=== PATIENT | female | born 1995 | race Caucasian/White ===

== ENCOUNTER → 2020-01-24 | Outpatient (CLI) | payer OTHER ==
--- NOTE | 2020-01-24 12:12 | Diagnostic Imaging Report ---
INDICATION: anatomy survey. TECHNIQUE: Multiple real-time grayscale images were obtained over the gravid uterus. COMPARISON: None FINDINGS: There is a single live intrauterine in the transverse position. The placenta is posterior in location, and there is complete coverage of the internal cervical os indicative of complete previa. The heart rate is 156 beats per minute. The MIGUEL A measures 11.8 cm. anatomy survey was performed and the following structures are visualized and normal: Four-chamber heart, kidneys, urinary bladder, stomach, cerebral ventricles and cerebellum, three-vessel cord, spine and umbilical cord insertion. Due to advanced gestational age, the maternal adnexa are suboptimally evaluated. Biometrical measurements are as follows: Biparietal 4.63 cm, age 20 weeks 0 days. Head circumference 17.59 cm, age 20 weeks 1 days. Abdominal circumference 14.93 cm, age 20 weeks 2 days. Femur length 3.19 cm, age 20 weeks 0 days. Sonographic estimate age: 20 weeks 1 days. Sonographic estimated date of delivery: 06/11/2020. Estimated Weight: 330 gm (+/- 48 gm). LMP percentile: 41%. heart rate: 156 beats per minute. number: 1 of 1. IMPRESSION: 1. Single live intrauterine with normal anatomy survey. 2. Complete previa present. Recommend followup pelvic ultrasound to reassess placental position in the near future. Dictated by: Dictated on workstation # [id number]
== END ==
LOC: RAD 10:00
PROVIDERS: ATTEND Nurse Practitioner Women's Health
DX: Z34.00 Encounter for supervision of normal first pregnancy, unspecified trimester (principal); Z3A.00 Weeks of gestation of pregnancy not specified
CPT/HCPCS: 76805

== ENCOUNTER → 2020-05-26 | Outpatient (CLI) | payer OTHER ==
[2020-05-26 14:41] LABS: ALKALINE PHOSPHATASE 141 U/L (40-136); BILIRUBIN,TOTAL 0.2 MG/DL (0.1-1.0); BUN/CREATININE RATIO 17; CARBON DIOXIDE 20 MMOL/L (21-32); CHLORIDE 106 MMOL/L (98-107); CREATININE SERUM 0.59 MG/DL (0.60-1.30); GFR ESTIMATED > 60; GLUCOSE 82 MG/DL (70-105); SODIUM 138 MMOL/L (135-145)
[2020-05-26 14:42] LABS: ALANINE AMINOTRANSFERASE 21 U/L (0-55); ALBUMIN 3.4 GM/DL (3.2-4.5); TOTAL PROTEIN 6.3 GM/DL (6.4-8.2)
== END ==
LOC: LAB FS 12:54
PROVIDERS: ATTEND Obstetrics & Gynecology
DX: L29.9 Pruritus, unspecified (principal)
CPT/HCPCS: 36415; 80053; 83789

== ENCOUNTER 2020-06-14 19:04 | Inpatient (IN) | payer OTHER ==
[~2020-06-14] VITALS: Ht 170.2 cm; Wt 82.7 kg
[2020-06-14] MEDS ORDERED: D5 LR IV SOLUTION 1,000 ML IV ONE (19:08)
[2020-06-14 19:20] VITALS: BP 139/79
[2020-06-14] MEDS ORDERED: LACTATED RINGERS 1,000 ML IV SCH (19:45)
[2020-06-14] MEDS ORDERED: MINERAL OIL CONCENTRATE 99.9% 15 ML UDC TOP PRN (19:45)
[2020-06-14 20:00] VITALS: BP 119/65
[2020-06-14] MEDS: D5 LR IV SOLUTION 1,000 ML IV SCH (20:09)
[2020-06-14 20:24] VITALS: BP 119/65
[2020-06-14 20:31] LABS: BASOPHILS % (AUTO) 0 % (0-10); EOSINOPHILS # (AUTO) 0.1 10^3/uL (0.0-0.3); EOSINOPHILS % (AUTO) 1 % (0-10); HEMATOCRIT 35 % (35-52); HEMOGLOBIN 11.5 g/dL (11.5-16.0); LYMPHOCYTES % (AUTO) 17 % (12-44); MEAN CORPUSCULAR HEMOGLOBIN 29 pg (25-34); MEAN CORPUSCULAR HGB CONC 33 g/dL (32-36); MEAN CORPUSCULAR VOLUME 89 fL (80-99); MEAN PLATELET VOLUME 11.6 fL (9.0-12.2); MONOCYTES # (AUTO) 0.8 10^3/uL (0.0-1.0); MONOCYTES % (AUTO) 7 % (0-12); NEUTROPHILS # (AUTO) 8.6 10^3/uL (1.8-7.8); NEUTROPHILS % (AUTO) 74 % (42-75); PLATELET COUNT 220 10^3/uL (130-400); WHITE BLOOD COUNT 11.5 10^3/uL (4.3-11.0)
[2020-06-14 23:00] VITALS: BP 100/51
[2020-06-15] VITALS (72 sets, daily range): BP systolic 98–161; BP diastolic 53–102
[2020-06-15] MEDS ORDERED: CALCIUM CARBONATE 500 MG (TUMS) TAB.CHEW PO PRN (02:00)
[2020-06-15] MEDS: CATHETER FLUSH 10 ML SYR IV SCH ×2 (02:00→06:29)
[2020-06-15] MEDS: D5 LR IV SOLUTION 1,000 ML IV SCH ×2 (03:27→11:34)
[2020-06-15] MEDS ORDERED: fentaNYL 2 mcg/ml BUPIVA 0.125 100 ML ONE (07:29)
[2020-06-15] MEDS ORDERED: BUPIVACAINE 0.25% 30 ML (SENSORCAINE) VIAL ONE (08:04)
[2020-06-15] MEDS ORDERED: fentaNYL INJ 100 MCG/2 ML AMP ONE (08:04)
[2020-06-15] MEDS: EPIDURAL (fentaNYL 2 MCG/ML BUPIVA 0.125%)100 ML BAG EPI PRN ×2 (08:30→15:50)
[2020-06-15] MEDS ORDERED: OXYTOCIN PRE-MIX DRIP 500 ML IV SCH ×2 (08:45→19:45)
[2020-06-15] MEDS ORDERED: ONDANSETRON 4 MG/2 ML (SDV) Z0FRAN IV PRN (09:00)
[2020-06-15] MEDS ORDERED: METOCLOPRAMIDE INJ 10 MG/2 ML (REGLAN) IV PRN (09:00)
[2020-06-15] MEDS ORDERED: NALOXONE 0.4 MG/ML 1 ML (NARCAN) VIAL IV PRN ×2 (09:00)
[2020-06-15] MEDS ORDERED: diphenhydrAMINE 50 MG/ML INJ (BENADRYL) IV PRN (09:00)
[2020-06-15] MEDS ORDERED: LACTATED RINGERS 1,000 ML IV SCH (09:00)
[2020-06-15] MEDS ORDERED: LIDOCAINE/EPI 2% 1:200,00 (XYLOCAINE) 10 ML VIAL ONE (15:05)
[2020-06-15] MEDS ORDERED: WITCH HAZEL(TUCKS) 40 EA JAR ONE (19:32)
[2020-06-15] MEDS ORDERED: BENZOCAINE/MENTHOL (DERMOPLAST) 56 ML CAN TP ONE (19:32)
[2020-06-15] MEDS ORDERED: IBUPROFEN 600 MG (MOTRIN) TAB PO ONE (19:33)
[2020-06-15] MEDS ORDERED: DIBUCAINE 1% OINTMENT 30 GM TUBE TOP PRN (19:45)
[2020-06-15] MEDS ORDERED: HYDROcodone/APAP 5 MG/325 MG (LORTAB) TAB PO PRN (19:45)
[2020-06-15] MEDS ORDERED: TETANUS,DIPTH,PERTUSS P/F (BOOSTRIX) 0.5 ML VIAL IM ONE (19:45)
[2020-06-15] MEDS ORDERED: WITCH HAZEL(TUCKS) 40 EA JAR TOP PRN (19:45)
[2020-06-15] MEDS ORDERED: MEASLES,MUMPS,RUBELLA 1 EA INJ SQ ONE (19:45)
[2020-06-15] MEDS ORDERED: BENZOCAINE/MENTHOL (DERMOPLAST) 56 ML CAN TP PRN (19:45)
[2020-06-15] MEDS: IBUPROFEN 600 MG (MOTRIN) TAB PO SCH (19:50)
--- NOTE | 2020-06-15 19:51 | OB Labor & Delivery Record ---
L&D History Date of Service Date of Service: Jun 15, 2020 History Expected Date of Delivery: Jun 11, 2020 Gestational Age in Weeks: 40 Hx : 1 Hx Para: 0 Complications Events: Routine care Operative Indications (Cesarea: N/A-Vaginal Delivery Intrapartal Events: None, Ineffective Pushing L&D Stage1 Stage One Onset of Labor - Date: Jun 15, 2020 Monitors and Tracing Monitor Mode: External Heart Rate: 145 Monitor Accelerations: Uniform Monitor Decelerations: Early Station: 0 Halfway Variability: Average (6-10) Short Term Variability: Present Presentation: Vertex Vital Signs VS - Last 72 Hours, by Label 06/14/20 06/14/20 06/14/20 06/14/20 19:20 20:00 20:24 23:00 Temp 36.9 36.9 Pulse 82 70 70 60 Resp 18 18 18 18 B/P (MAP) 139/79 (99) 119/65 (83) 100/51 (67) Pulse Ox 99 99 O2 Delivery Room Air Room Air 06/15/20 06/15/20 06/15/20 06/15/20 00:00 01:00 02:00 03:00 Temp 36.8 Pulse 67 61 61 55 Resp 18 18 18 18 B/P (MAP) 105/53 (70) 112/67 (82) 110/65 (80) 106/59 (75) 06/15/20 06/15/20 06/15/20 06/15/20 04:00 05:00 06:00 07:00 Temp 36.8 Pulse 58 63 70 68 Resp 18 18 18 18 B/P (MAP) 112/56 (74) 115/63 (80) 103/59 (74) 125/77 (93) 06/15/20 06/15/20 06/15/20 06/15/20 07:39 07:56 08:15 08:18 Temp 36.7 Pulse 67 64 59 Resp 18 18 18 B/P (MAP) 124/74 (91) 120/61 (80) 121/64 (83) Pulse Ox 98 99 O2 Delivery Room Air Room Air Room Air 06/15/20 06/15/20 06/15/20 06/15/20 08:21 08:24 08:27 08:30 Temp 36.4 Pulse 65 69 74 62 Resp 18 18 18 18 B/P (MAP) 134/68 (90) 129/67 (87) 121/60 (80) 111/58 (75) Pulse Ox 99 98 97 O2 Delivery Room Air Room Air Room Air Room Air 06/15/20 06/15/20 06/15/20 06/15/20 08:33 08:35 08:39 08:42 Pulse 68 58 69 73 Resp 18 18 18 18 B/P (MAP) 103/58 (73) 104/60 (75) 104/58 (73) 105/59 (74) Pulse Ox 97 97 O2 Delivery Room Air Room Air Room Air Room Air 06/15/20 06/15/20 06/15/20 06/15/20 08:45 08:47 08:51 08:54 Pulse 65 55 70 57 Resp 18 18 18 18 B/P (MAP) 110/60 (77) 108/57 (74) 106/59 (75) 103/55 (71) Pulse Ox 98 97 97 O2 Delivery Room Air Room Air Room Air Room Air 06/15/20 06/15/20 06/15/20 06/15/20 08:57 09:00 09:03 09:06 Pulse 55 60 60 57 Resp 18 18 18 18 B/P (MAP) 105/55 (72) 104/55 (71) 104/57 (73) 105/59 (74) Pulse Ox 96 97 O2 Delivery Room Air Room Air Room Air Room Air 06/15/20 06/15/20 06/15/20 06/15/20 09:24 09:40 09:56 10:10 Pulse 64 57 54 49 Resp 18 18 18 18 B/P (MAP) 109/66 (80) 100/56 (71) 101/56 (71) 98/57 (71) Pulse Ox 98 98 97 97 O2 Delivery Room Air Room Air Room Air Room Air 06/15/20 06/15/20 06/15/20 06/15/20 10:26 10:34 10:39 10:55 Temp 36.4 Pulse 54 59 56 Resp 18 18 18 B/P (MAP) 103/59 (74) 99/55 (70) 103/60 (74) Pulse Ox 99 99 100 O2 Delivery Room Air Room Air Room Air 06/15/20 06/15/20 06/15/20 06/15/20 11:10 11:26 11:36 11:40 Temp 36.8 Pulse 62 57 60 Resp 18 18 18 B/P (MAP) 113/72 (86) 121/73 (89) 108/54 (72) Pulse Ox 100 100 92 O2 Delivery Room Air Room Air Room Air 06/15/20 06/15/20 06/15/20 06/15/20 12:10 12:27 12:40 12:55 Pulse 61 62 64 64 Resp 18 18 18 18 B/P (MAP) 119/67 (84) 118/71 (87) 109/63 (78) 125/59 (81) Pulse Ox 100 100 100 92 O2 Delivery Room Air Room Air Room Air Room Air 06/15/20 06/15/20 06/15/20 06/15/20 13:11 13:25 13:39 13:56 Pulse 63 63 58 60 Resp 18 18 18 18 B/P (MAP) 113/58 (76) 114/65 (81) 119/72 (88) 118/70 (86) Pulse Ox 98 99 99 98 O2 Delivery Room Air Room Air Room Air Room Air 06/15/20 06/15/20 06/15/20 06/15/20 14:10 14:26 14:42 14:54 Pulse 60 68 58 70 Resp 18 18 18 18 B/P (MAP) 118/68 (85) 110/65 (80) 127/75 (92) 119/71 (87) Pulse Ox 99 97 100 100 O2 Delivery Room Air Room Air Room Air Room Air 06/15/20 06/15/20 06/15/20 06/15/20 15:07 15:26 15:40 15:47 Temp 37.0 36.9 Pulse 83 111 Resp 18 18 B/P (MAP) 130/67 (88) 132/74 (93) Pulse Ox 100 99 O2 Delivery Room Air Room Air 06/15/20 06/15/20 06/15/20 06/15/20 15:56 16:10 16:25 16:40 Temp 36.9 Pulse 72 69 82 83 Resp 18 18 18 18 B/P (MAP) 120/69 (86) 116/68 (84) 131/68 (89) 137/73 (94) Pulse Ox 100 100 98 100 O2 Delivery Room Air Room Air Room Air Room Air 06/15/20 06/15/20 06/15/20 06/15/20 16:55 17:02 17:10 17:25 Temp 38.2 Pulse 81 92 98 Resp 18 18 18 B/P (MAP) 139/67 (91) 133/70 (91) 143/67 (92) O2 Delivery Room Air Room Air Room Air 06/15/20 06/15/20 06/15/20 06/15/20 17:40 17:56 18:24 18:40 Pulse 87 83 157 141 Resp 18 18 18 18 B/P (MAP) 118/70 (86) 121/73 (89) 161/102 (121) 149/69 (95) O2 Delivery Room Air Room Air Room Air Room Air 06/15/20 18:56 Pulse 142 Resp 18 B/P (MAP) 154/73 (100) O2 Delivery Room Air Rupture of Membranes Spontaneous Ruture of Membrane: Yes Amniotic Membrane Rupture Time: 0630 Amniotic Membrane Fluid Desc.: Clear Vaginal Bleeding Description: Normal Show Induction/Anesthesia Epidural Cath Placement - Time: 822 Progress/Notes Patient admitted last night for IOL. Cytotec PO given for cervical ripening overnight. SROM occurred this am around 630 am. Pitocin augmentation was started due to dysfunction contraction pattern. Epidural was obtained. She progressed with max dose of 8mu pitocin to complete a 0 station. L&D Stage2 Stage Two Stage II Date: Jun 15, 2020 Monitors and Tracing Monitor Mode: External Heart Rate: 170 Monitor Accelerations: Uniform Monitor Decelerations: Variable Halfway Variability: Average (6-10) Short Term Variability: Present Position: Right Occiput Anterior Presentation: Vertex Signs of Distress by FHT Signs of Distress Patient progressed infant vertex to +2 station, however little change made. Due to ineffective pushing and lack of progress in station, as well as persistent tachycardia, and FHR decelerations concerning for distress. Discussed with patient low vacuum extraction and risk involved. Patient agreeable to proceed. With next maternal push vacuum applied, however, no good suction seal achieved. A second kiwi was applied and first was discarded. I was able to place over flexion point, and give gentle downward tension with 60 mmHg suction applied. This partially delivered head to . A pop off occurred again, and RML was performed at that point. One last application of kiwi was done, which allowed for extension of the head and delivery. The kiwi was then taken off. Anterior right shoulder and then posterior should delivered, and infant handed off to maternal abdomen. Cord Descript/Complications Cord Vessel Description: 3 Vessels Delivery Type Infant Delivery Method: Low Vacuum Extraction Anterior Shoulder: Right Episiotomy/Perineal Laceration Laceraction(s)/Extensions: Yes Episiotomy Description: Right Mediolateral Location Modifier: Left Degree (describe repair) Patient had a left labial, and RML. Repaired using 3-0 and 2-0 vicryl suture in usual fashion. Condition of Delivery 1 minute Comment: 6 5 minute Comment: 9 Notes Live female weight 9lbs 7oz Condition of Infant Condition of Infant: Living Exam: No Observed Abnormalities Resuscitation Resuscitation: N/A - Spontaneous Resp L&D Stage3 Stage Three Stage III Date: Jun 15, 2020 Pictocin Pitocin Administration mu/min: 8 Pitocin ml/hr: 8 Pitocin Administration Comment: 30 mu wide open at delivery of placenta Placenta Delivery Placenta Delivery: Spontaneous Delivery Summary Summary Estimated blood loss (mL): 450 Attending at delivery: Cintia Bishop DO Condition of Delivery Examined: Cervix Examined, Uterus Explored Post Hemorrhage: No Condition of Mother stable Condition of (s) stable CINTIA BISHOP DO Jun 15, 2020 19:51
--- NOTE | 2020-06-15 19:54 | History & Physical-OB ---
OB - Chief Complaint & HPI Date/Time Date of Admission: Date of Admission: Jun 14, 2020 at 19:04 Date seen by a Provider: Jun 15, 2020 Time Seen by a Provider: 07:55 Chief Complaint/History OB-Reason for Admission/Chief: Induction of Labor Hx : 1 Hx Para: 0 Expected Date of Delivery: Jun 11, 2020 Gestational Age in Weeks: 40 Gestational Age in Days: 3 Admission Nurse Assessment Rev: Yes Allergies and Home Medications Allergies Coded Allergies: No Known Drug Allergies (Unverified , 06/14/20) Patient Home Medication List Home Medication List Reviewed: Yes OB - History Hx of Present Care: Yes Ultrasounds: Normal mid trimester US Obstetrical Complications: None Medical Complications: None Obstetrical History Hx : 1 Hx Para: 0 Patient Past Medical History n/a OB - Admission Exam Physical Exam Vitals: Vital Signs 06/15/20 06/15/20 06/15/20 16:40 17:02 18:56 Temp 38.2 Pulse 142 Resp 18 B/P (MAP) 154/73 (100) Pulse Ox 100 O2 Delivery Room Air HEENT: NCAT Heart: Rhythm Normal Lungs: Clear Abdomen: Gravid Extremities: Normal Reflexes: Normal Cervical Dilatation: 1cm Effacement: 75% Station: -1 Membranes: Intact Heart Rate: 130's Accelerations: Accelerations Present Decelerations: No Decelerations Short Term Variability: Present Sanitation Truck Driver Variability: Average (6-25) Contractions on Admission: >10 Minutes Apart Intensity: Mild OB - Assessment/Plan/Diagnosis Assessment Assessment: induction of labor Admission Dx 25 yo @ 40.3 weeks Induction of labor Post dates Admission Status: Inpatient Order (span 2 midnights) Reason for Inpatient Admission: 25 yo @ 40.3 weeks Induction of labor Post dates Plan Plan: Induction Induction Method: per Misoprostol Protocol CINTIA BISHOP DO Jun 15, 2020 19:54
[2020-06-15] MEDS ORDERED: CATHETER FLUSH 10 ML SYR IV SCH (22:00)
[2020-06-16 00:08] VITALS: BP 115/53
[2020-06-16] MEDS: IBUPROFEN 600 MG (MOTRIN) TAB PO SCH ×4 (02:13→22:17)
[2020-06-16] MEDS: DOCUSATE SODIUM 100 MG (COLACE) CAP PO SCH ×3 (02:13→20:59)
[2020-06-16 04:00] VITALS: BP 113/58
[2020-06-16 05:44] LABS: BASOPHILS % (AUTO) 0 % (0-10); EOSINOPHILS # (AUTO) 0.1 10^3/uL (0.0-0.3); EOSINOPHILS % (AUTO) 0 % (0-10); HEMATOCRIT 27 % (35-52); HEMOGLOBIN 8.8 g/dL (11.5-16.0); LYMPHOCYTES # (AUTO) 1.7 10^3/uL (1.0-4.0); LYMPHOCYTES % (AUTO) 10 % (12-44); MEAN CORPUSCULAR HEMOGLOBIN 29 pg (25-34); MEAN CORPUSCULAR HGB CONC 32 g/dL (32-36); MEAN CORPUSCULAR VOLUME 91 fL (80-99); MEAN PLATELET VOLUME 11.3 fL (9.0-12.2); MONOCYTES # (AUTO) 1.4 10^3/uL (0.0-1.0); MONOCYTES % (AUTO) 8 % (0-12); NEUTROPHILS # (AUTO) 14.1 10^3/uL (1.8-7.8); NEUTROPHILS % (AUTO) 81 % (42-75); PLATELET COUNT 174 10^3/uL (130-400); WHITE BLOOD COUNT 17.4 10^3/uL (4.3-11.0)
--- NOTE | 2020-06-16 07:13 | Postpartum Progress Note ---
Note Note Day # 1 Subjective: Patient is without complaints. Ambulating, voiding. Tolerating a regular diet without nausea or vomiting. Normal lochia. Pain is well controlled with oral pain medications. Objective: Physical Exam: General - Alert and oriented, no apparent distress Abdomen - Soft, appropriately tender to palpation, non-distended, fundus firm at umbilicus Extremities - no edema, negative Lisbet's bilaterally Assessment: PPD 1 VAVD Acute blood loss anemia Plan: Routine care. Encourage breast feeding. Encourage ambulation. Ferrous sulfate supplementation. Plan for discharge tomorrow Vitals - Labs Vital Signs - I&O Vital Signs Date Time Temp Pulse Resp B/P (MAP) Pulse Ox O2 Delivery O2 Flow Rate FiO2 06/16/20 04:00 36.5 67 18 113/58 (76) 96 06/16/20 00:08 37.0 65 18 115/53 (73) 97 06/15/20 21:24 79 20 119/62 (81) Room Air 06/15/20 21:09 82 20 121/67 (85) Room Air 06/15/20 20:54 37.1 76 20 113/58 (76) Room Air 06/15/20 20:39 74 20 106/59 (75) Room Air 06/15/20 20:24 76 18 111/58 (75) Room Air 06/15/20 20:09 18 118/69 (85) Room Air 06/15/20 19:54 77 18 124/56 (78) Room Air 06/15/20 19:39 84 20 124/58 (80) Room Air 06/15/20 19:24 37.4 96 20 125/59 (81) Room Air 06/15/20 18:56 142 18 154/73 (100) Room Air 06/15/20 18:40 141 18 149/69 (95) Room Air 06/15/20 18:24 157 18 161/102 (121) Room Air 06/15/20 17:56 83 18 121/73 (89) Room Air 06/15/20 17:40 87 18 118/70 (86) Room Air 06/15/20 17:25 98 18 143/67 (92) Room Air 06/15/20 17:10 92 18 133/70 (91) Room Air 06/15/20 17:02 38.2 06/15/20 16:55 81 18 139/67 (91) Room Air 06/15/20 16:40 36.9 83 18 137/73 (94) 100 Room Air 06/15/20 16:25 82 18 131/68 (89) 98 Room Air 06/15/20 16:10 69 18 116/68 (84) 100 Room Air 06/15/20 15:56 72 18 120/69 (86) 100 Room Air 06/15/20 15:47 36.9 06/15/20 15:40 111 18 132/74 (93) 99 Room Air 06/15/20 15:26 83 18 130/67 (88) 100 Room Air 06/15/20 15:07 37.0 06/15/20 14:54 70 18 119/71 (87) 100 Room Air 06/15/20 14:42 58 18 127/75 (92) 100 Room Air 06/15/20 14:26 68 18 110/65 (80) 97 Room Air 06/15/20 14:10 60 18 118/68 (85) 99 Room Air 06/15/20 13:56 60 18 118/70 (86) 98 Room Air 06/15/20 13:39 58 18 119/72 (88) 99 Room Air 06/15/20 13:25 63 18 114/65 (81) 99 Room Air 06/15/20 13:11 63 18 113/58 (76) 98 Room Air 06/15/20 12:55 64 18 125/59 (81) 92 Room Air 06/15/20 12:40 64 18 109/63 (78) 100 Room Air 06/15/20 12:27 62 18 118/71 (87) 100 Room Air 06/15/20 12:10 61 18 119/67 (84) 100 Room Air 06/15/20 11:40 60 18 108/54 (72) 92 Room Air 06/15/20 11:36 36.8 06/15/20 11:26 57 18 121/73 (89) 100 Room Air 06/15/20 11:10 62 18 113/72 (86) 100 Room Air 06/15/20 10:55 56 18 103/60 (74) 100 Room Air 06/15/20 10:39 59 18 99/55 (70) 99 Room Air 06/15/20 10:34 36.4 06/15/20 10:26 54 18 103/59 (74) 99 Room Air 06/15/20 10:10 49 18 98/57 (71) 97 Room Air 06/15/20 09:56 54 18 101/56 (71) 97 Room Air 06/15/20 09:40 57 18 100/56 (71) 98 Room Air 06/15/20 09:24 64 18 109/66 (80) 98 Room Air 06/15/20 09:06 57 18 105/59 (74) 97 Room Air 06/15/20 09:03 60 18 104/57 (73) Room Air 06/15/20 09:00 60 18 104/55 (71) 96 Room Air 06/15/20 08:57 55 18 105/55 (72) Room Air 06/15/20 08:54 57 18 103/55 (71) 97 Room Air 06/15/20 08:51 70 18 106/59 (75) 97 Room Air 06/15/20 08:47 55 18 108/57 (74) Room Air 06/15/20 08:45 65 18 110/60 (77) 98 Room Air 06/15/20 08:42 73 18 105/59 (74) Room Air 06/15/20 08:39 69 18 104/58 (73) 97 Room Air 06/15/20 08:35 58 18 104/60 (75) 97 Room Air 06/15/20 08:33 68 18 103/58 (73) Room Air 06/15/20 08:30 62 18 111/58 (75) 97 Room Air 06/15/20 08:27 36.4 74 18 121/60 (80) Room Air 06/15/20 08:24 69 18 129/67 (87) 98 Room Air 06/15/20 08:21 65 18 134/68 (90) 99 Room Air 06/15/20 08:18 59 18 121/64 (83) 99 Room Air 06/15/20 08:15 64 18 120/61 (80) 98 Room Air 06/15/20 07:56 67 18 124/74 (91) Room Air 06/15/20 07:39 36.7 I & O 06/16/20 07:00 Intake Total 2000 ml Balance 2000 ml Labs Laboratory Tests 06/16/20 05:17: White Blood Count 17.4H, Red Blood Count 3.00L, Hemoglobin 8.8#L, Hematocrit 27L , Mean Corpuscular Volume 91, Mean Corpuscular Hemoglobin 29, Mean Corpuscular Hemoglobin Concent 32, Red Cell Distribution Width 13.6, Platelet Count 174, Mean Platelet Volume 11.3, Immature Granulocyte % (Auto) 1, Neutrophils (%) (Auto) 81H, Lymphocytes (%) (Auto) 10L, Monocytes (%) (Auto) 8, Eosinophils (%) (Auto) 0, Basophils (%) (Auto) 0, Neutrophils # (Auto) 14.1H, Lymphocytes # (Auto) 1.7, Monocytes # (Auto) 1.4H, Eosinophils # (Auto) 0.1, Basophils # (Auto) 0.0, Immature Granulocyte # (Auto) 0.1 CINTIA BISHOP DO Jun 16, 2020 07:13
--- NOTE | 2020-06-16 07:19 | Anesthesia-Regional Post-Op ---
Regional Patient Condition Mental Status: Alert, Oriented x3 Circulation: Same as Pre-Op Headache: Absent Sensation: Full Recovery Motor Block: Absent Post Op Complications Complications None Follow Up Care/Instructions Patient Instructions None needed. Anesthesia/Patient Condition Patient is doing well, no complaints, stable vital signs, no apparent adverse anesthesia problems. No complications reported per nursing. JUAN BUSTOS CRNA Jun 16, 2020 07:19
[2020-06-16 09:00] VITALS: BP 111/64
[2020-06-16] MEDS: PRENATAL VITAMIN 1 EA TAB PO SCH (09:27)
[2020-06-16] MEDS: FERROUS SULF 325 MG (IRON) TAB PO SCH (09:27)
[2020-06-16 12:30] VITALS: BP 102/61
[2020-06-16 16:15] VITALS: BP 116/58
[2020-06-16 21:05] VITALS: BP 110/58
--- NOTE | 2020-06-16 21:07 | Discharge Inst-Women's Service ---
Discharge Inst-Women's Serv Depart Medication/Instructions New, Converted or Re-Newed RX: RX on Chart Final Diagnosis PPD 2 VAVD Problems Reviewed?: Yes Consults/Follow Up Additional Follow Up: Yes Orders/Referrals Dr. Cueto in 6 weeks Activity Activity: Activity as Tolerated Driving Instructions: No Driving for 1 Week NO SMOKING: NO SMOKING Nothing Inside Vagina: No Douching, No [place], No Tampons Diet Discharge Diet: No Restrictions Symptoms to Report to : Bleeding Excessive, Pain Increased, Fever Over 101 Degrees F, Vaginal Bleeding Increase, Questions/Concerns For Any Problems or Questions: Contact Your Physician Skin/Wound Care Stitches/[place]/Dermabond: CINTIA Brasher DO Jun 16, 2020 21:07
[2020-06-16] MEDS ORDERED: DCS100C PO (21:09)
[2020-06-16] MEDS ORDERED: IBUP-844 PO (21:09)
[2020-06-16] MEDS ORDERED: BENZ78AE5 TP (21:09)
[2020-06-16] MEDS ORDERED: DIBU30OI TOP (21:09)
[2020-06-16] MEDS ORDERED: ACHD5005 PO (21:09)
[2020-06-17 00:35] VITALS: BP 116/62
[2020-06-17 04:00] VITALS: BP 120/61
[2020-06-17] MEDS: IBUPROFEN 600 MG (MOTRIN) TAB PO SCH ×2 (04:02→10:12)
[2020-06-17 09:02] VITALS: BP 114/75
[2020-06-17] MEDS: PRENATAL VITAMIN 1 EA TAB PO SCH (09:08)
[2020-06-17] MEDS: FERROUS SULF 325 MG (IRON) TAB PO SCH (09:08)
[2020-06-17] MEDS: DOCUSATE SODIUM 100 MG (COLACE) CAP PO SCH (09:08)
--- NOTE | 2020-06-17 10:30 | Postpartum Progress Note ---
Note Note Day # 2 Subjective: Patient is without complaints. Ambulating, voiding. Tolerating a regular diet without nausea or vomiting. Normal lochia. Pain is well controlled with oral pain medications. Objective: Physical Exam: General - Alert and oriented, no apparent distress Abdomen - Soft, appropriately tender to palpation, non-distended, fundus firm at umbilicus Extremities - no edema, negative Lisbet's bilaterally Assessment: PPD 2 VAVD Acute blood loss anemia Plan: Routine care. Encourage breast feeding. Encourage ambulation. Ferrous sulfate supplementation. Plan for discharge today Vitals - Labs Vital Signs - I&O Vital Signs Date Time Temp Pulse Resp B/P (MAP) Pulse Ox O2 Delivery O2 Flow Rate FiO2 06/17/20 09:02 37.0 69 16 114/75 (88) 100 Room Air 06/17/20 04:00 36.7 67 16 120/61 (80) 98 Room Air 06/17/20 00:35 36.7 68 16 116/62 (80) 98 Room Air 06/16/20 21:05 36.9 73 16 110/58 (75) 98 Room Air 06/16/20 16:15 36.8 67 18 116/58 (77) 98 Room Air 06/16/20 12:30 36.9 74 17 102/61 (75) 97 Room Air CINTIA BISHOP DO Jun 17, 2020 10:30
[2020-06-17 13:20] VITALS: BP 114/75
== END 2020-06-17 13:20 | disposition home or self-care (01) | DRG 806 ==
LOC: LDRP 19:04 → UNDODISIN 06-15 22:00 → LDRP 06-16 07:17
PROVIDERS: ADMIT Obstetrics & Gynecology; ATTEND Obstetrics & Gynecology
PROC: 3E0D7GC Introduction of Other Therapeutic Substance into Mouth and Pharynx, Via Natural or Artificial Opening (ICD-10-PCS; 2020-06-14)
PROC: 10D07Z6 Extraction of Products of Conception, Vacuum, Via Natural or Artificial Opening (ICD-10-PCS; principal; 2020-06-15)
PROC: 0HQ9XZZ Repair Perineum Skin, External Approach (ICD-10-PCS; 2020-06-15)
PROC: 0W8NXZZ Division of Female Perineum, External Approach (ICD-10-PCS; 2020-06-15)
DX: O48.0 Post-term pregnancy (principal); D62 Acute posthemorrhagic anemia; Z37.0 Single live birth; O76 Abnormality in fetal heart rate and rhythm complicating labor and delivery; O70.0 First degree perineal laceration during delivery; O90.81 Anemia of the puerperium; Z3A.40 40 weeks gestation of pregnancy
CPT/HCPCS: 36415; 85025; 86850; 86900; 86901

== ENCOUNTER → 2021-08-28 | Outpatient (CLI) | payer OTHER ==
[~2021-08-28] MED LIST: ACHD5005 PO; BENZ78AE5 TP; DIBU30OI TOP; DOCU-239 PO; IBUP-844 PO
[2021-08-28 19:03] LABS: ALBUMIN 4.3 GM/DL (3.2-4.5)
[2021-08-28 19:06] LABS: TOTAL PROTEIN 6.9 GM/DL (6.4-8.2)
[2021-08-28 19:07] LABS: BILIRUBIN,TOTAL 0.3 MG/DL (0.1-1.0)
[2021-08-28 19:11] LABS: BILIRUBIN,DIRECT 0.1 MG/DL (0.0-0.3); BILIRUBIN,INDIRECT 0.2 MG/DL
== END ==
LOC: LAB 18:34
PROVIDERS: ATTEND Registered Nurse Emergency
DX: Z76.89 Persons encountering health services in other specified circumstances (principal)
CPT/HCPCS: 36415; 80076

== ENCOUNTER → 2021-10-21 | Outpatient (CLI) | payer OTHER ==
[2021-10-21 20:32] LABS: ALBUMIN 4.1 GM/DL (3.2-4.5); BILIRUBIN,DIRECT 0.1 MG/DL (0.0-0.3); BILIRUBIN,INDIRECT 0.2 MG/DL; BILIRUBIN,TOTAL 0.3 MG/DL (0.1-1.0); TOTAL PROTEIN 6.5 GM/DL (6.4-8.2)
== END ==
LOC: LAB 19:24
PROVIDERS: ATTEND Podiatrist Foot & Ankle Surgery
DX: B35.1 Tinea unguium (principal)
CPT/HCPCS: 36415; 80076

== ENCOUNTER → 2021-11-29 | Outpatient (CLI) | payer OTHER ==
[2021-11-29 11:10] LABS: ALBUMIN 4.1 GM/DL (3.2-4.5)
[2021-11-29 11:13] LABS: TOTAL PROTEIN 6.9 GM/DL (6.4-8.2)
[2021-11-29 11:14] LABS: BILIRUBIN,TOTAL 0.4 MG/DL (0.1-1.0)
[2021-11-29 11:18] LABS: BILIRUBIN,DIRECT 0.2 MG/DL (0.0-0.3); BILIRUBIN,INDIRECT 0.2 MG/DL
== END ==
LOC: LAB 10:25
PROVIDERS: ATTEND Podiatrist Foot & Ankle Surgery
DX: B49 Unspecified mycosis (principal)
CPT/HCPCS: 36415; 80076

== ENCOUNTER 2022-08-26 05:36 | Outpatient (CLI) | payer OTHER ==
[~2022-08-26] VITALS: Ht 170.2 cm; Wt 83.5 kg
[2022-08-26] MEDS ORDERED: PREN-98 PO (10:46)
[2022-08-26] MEDS ORDERED: FOLIC PO (10:46)
[2022-08-26] MEDS ORDERED: FERR325T24 PO (10:46)
[2022-08-26] MEDS ORDERED: FOLI1TAB33 PO (10:46)
[2022-08-26] MEDS ORDERED: CALC500T7 PO (10:54)
== END 2022-08-26 10:55 | disposition home or self-care (01) ==
LOC: PREOP 05:36
PROVIDERS: ATTEND Obstetrics & Gynecology
DX: Z01.818 Encounter for other preprocedural examination (principal)

== ENCOUNTER 2022-08-29 05:36 | Inpatient (IN) | payer OTHER ==
[2022-08-29] VITALS (9 sets, daily range): BP systolic 108–129; BP diastolic 53–72
[~2022-08-29] VITALS: Ht 170 cm; Wt 84.1 kg
[~2022-08-29 05:36] MED LIST changes: +CALC500T7 PO; +FERR325T24 PO; +FOLI1TAB33 PO; +FOLIC PO; +PREN-98 PO
[2022-08-29] MEDS ORDERED: CATHETER FLUSH 10 ML SYR IV PRN (05:45)
[2022-08-29] MEDS ORDERED: CITRIC ACID/SOB CIT (BICITRA) 30 ML UDC PO ONE (05:45)
[2022-08-29] MEDS ORDERED: FAMOTIDINE 20MG/2ML IV (PEPCID) IV ONE (05:45)
[2022-08-29] MEDS ORDERED: LACTATED RINGERS 1,000 ML IV PRN ×2 (05:45)
[2022-08-29] MEDS ORDERED: ceFAZolin INJECTION 2,000 MG in NS (IVPB) 50 ML IV ONE (05:45)
[2022-08-29] MEDS ORDERED: METOCLOPRAMIDE INJ 10 MG/2 ML (REGLAN) IV ONE (05:45)
[2022-08-29 06:28] LABS: BASOPHILS # (AUTO) 0.1 10^3/uL (0.0-0.1); BASOPHILS % (AUTO) 1 % (0-10); EOSINOPHILS # (AUTO) 0.2 10^3/uL (0.0-0.3); EOSINOPHILS % (AUTO) 2 % (0-10); HEMATOCRIT 41 % (35-52); HEMOGLOBIN 14.2 g/dL (11.5-16.0); LYMPHOCYTES # (AUTO) 2.4 10^3/uL (1.0-4.0); LYMPHOCYTES % (AUTO) 20 % (12-44); MEAN CORPUSCULAR HEMOGLOBIN 35 pg (25-34); MEAN CORPUSCULAR HGB CONC 35 g/dL (32-36); MEAN CORPUSCULAR VOLUME 99 fL (80-99); MEAN PLATELET VOLUME 11.2 fL (9.0-12.2); MONOCYTES # (AUTO) 1.1 10^3/uL (0.0-1.0); MONOCYTES % (AUTO) 10 % (0-12); NEUTROPHILS # (AUTO) 7.9 10^3/uL (1.8-7.8); NEUTROPHILS % (AUTO) 66 % (42-75); PLATELET COUNT 144 10^3/uL (130-400); WHITE BLOOD COUNT 11.9 10^3/uL (4.3-11.0)
[2022-08-29] MEDS ORDERED: OXYTOCIN PRE-MIX DRIP 1,000 ML IV ONE (06:49)
[2022-08-29] MEDS ORDERED: fentaNYL INJ 100 MCG/2 ML AMP ONE (06:49)
[2022-08-29] MEDS ORDERED: ROPIVACAINE 5MG/ML 30ML VIAL ONE (06:56)
[2022-08-29] MEDS ORDERED: METHYLERGONOVINE 0.2 MG/ML (METHERGINE) AMP ONE (07:07)
--- NOTE | 2022-08-29 07:24 | History & Physical-OB ---
OB - Chief Complaint & HPI Date/Time Date of Admission: Date of Admission: Aug 29, 2022 at 05:36 Date seen by a Provider: Aug 29, 2022 Time Seen by a Provider: 07:10 Chief Complaint/History OB-Reason for Admission/Chief: Section Hx : 2 Hx Para: 1 Expected Date of Delivery: Sep 19, 2022 Gestational Age in Weeks: 37 Gestational Age in Days: 0 Indication for : malpresentation Other reason for admission: Patient noted to have breech/transverse presentation, but breech breech presentation yesterday with an unstable ly as well as advanced cervical dilatation there plan for at term with twin delivery was planned. Admission Nurse Assessment Rev: Yes Allergies and Home Medications Allergies Coded Allergies: No Known Drug Allergies (Unverified , 06/14/20) Patient Home Medication List Home Medication List Reviewed: Yes Calcium Carbonate (Tums) Unknown Strength Tab.chew, Unknown Dose PO, (Reported) Entered as Reported by: GILBERT AL on 08/26/22 105 Ferrous Sulfate (Ferosul) 325 Mg (65 Mg Iron) Tablet, 325 MG PO DAILY, (Reported) Entered as Reported by: GILBERT AL on 08/26/22 104 Vit37/Iron/Folic Acid ([place] Chewable Tablet) 29 Mg Iron-1 Mg Tab.chew, 1 EACH PO DAILY, (Reported) Entered as Reported by: GILBERT AL on 08/26/22 104 [Folic ] , 88 MCG PO DAILY, (Reported) Entered as Reported by: GILBERT AL on 08/26/22 104 Discontinued Medications Benzocaine/Menthol (Dermoplast Pain Relieving [place]) 78 Gm Aerosol, 0 ML TP UD PRN for PAIN- SEE INSTRUCTIONS Discontinued Reason: No Longer Taking Prescribed by: CINTIA BISHOP on 06/16/202108 Dibucaine (Dibucaine) 30 Gm Oint, 0 GM TOP UD PRN for PAIN- SEE INSTRUCTIONS Discontinued Reason: No Longer Taking Prescribed by: CINTIA BISHOP on 06/16/202108 Docusate Sodium (Dok) 100 Mg Capsule, 100 MG PO BID PRN for CONSTIPATION-1ST LINE Discontinued Reason: No Longer Taking Prescribed by: CINTIA BISHOP on 06/16/202108 Folic Acid (Folic Acid) 1 Mg Tablet, 1 MG PO DAILY, (Reported) Discontinued Reason: No Longer Taking Entered as Reported by: GILBERT Agustín SERVANDO on 08/26/22 1046 Hydrocodone Bit/Acetaminophen (HYDROcodone/APAP 5 MG/325 MG TAB) 1 Tab Tab, 1 EA PO Q4H PRN for PAIN-MODERATE (5-7) Discontinued Reason: No Longer Taking Prescribed by: CINTIA BISHOP on 06/16/202108 Ibuprofen (Ibu) 600 Mg Tablet, 600 MG PO Q6H Discontinued Reason: No Longer Taking Prescribed by: CINTIA BISHOP on 06/16/202108 OB - History Hx of Present Care: Yes Ultrasounds: Normal mid trimester US (Di/Di Twins) Obstetrical Complications: None Medical Complications: None Patient Past Medical History n/a Social History/Family History 2nd Hand Smoke Exposure: No Immunizations Influenza Vaccine Up-to-Date: No; Not Current First/Initial COVID19 Vaccine: 2020 Second COVID19 Vaccination: 2020 COVID19 Vaccine Air Marshal: [place] OB - Admission Exam Physical Exam Vitals: Vital Signs 08/29/22 06:19 Temp 37.1 Pulse 67 Resp 18 Pulse Ox 98 O2 Delivery Room Air HEENT: NCAT Heart: Rhythm Normal Lungs: Clear Abdomen: Gravid Extremities: Normal Reflexes: Normal Heart Rate: 130's Accelerations: Accelerations Present Decelerations: No Decelerations Short Term Variability: Present Long-Term Variability: Average (6-25) Contractions on Admission: < 5 Minutes Apart Intensity: Mild Labs Laboratory Tests Test 08/29/22 06:10 Range/Units White Blood Count 11.9 H 4.3-11.0 10^3/uL Red Blood Count 4.11 3.80-5.11 10^6/uL Hemoglobin 14.2 11.5-16.0 g/dL Hematocrit 41 35-52 % Mean Corpuscular Volume 99 80-99 fL Mean Corpuscular Hemoglobin 35 H 25-34 pg Mean Corpuscular Hemoglobin Concent 35 32-36 g/dL Red Cell Distribution Width 13.8 10.0-14.5 % Platelet Count 144 130-400 10^3/uL Mean Platelet Volume 11.2 9.0-12.2 fL Immature Granulocyte % (Auto) 2 % Neutrophils (%) (Auto) 66 42-75 % Lymphocytes (%) (Auto) 20 12-44 % Monocytes (%) (Auto) 10 0-12 % Eosinophils (%) (Auto) 2 0-10 % Basophils (%) (Auto) 1 0-10 % Neutrophils # (Auto) 7.9 H 1.8-7.8 10^3/uL Lymphocytes # (Auto) 2.4 1.0-4.0 10^3/uL Monocytes # (Auto) 1.1 H 0.0-1.0 10^3/uL Eosinophils # (Auto) 0.2 0.0-0.3 10^3/uL Basophils # (Auto) 0.1 0.0-0.1 10^3/uL Immature Granulocyte # (Auto) 0.2 H 0.0-0.1 10^3/uL OB - Assessment/Plan/Diagnosis Assessment Assessment: section Admission Dx 27 yo @ 37 weeks Di/Di Twins Unstable ly with leading twin breech GBS neg Admission Status: Inpatient Order (span 2 midnights) Reason for Inpatient Admission: PCS for 37 week twins Plan Plan: Section CINTIA BISHOP DO Aug 29, 2022 07:24
--- NOTE | 2022-08-29 07:26 | Discharge Inst-Women's Service ---
Discharge Inst-Women's Serv Depart Medication/Instructions New, Converted or Re-Newed RX: Transmitted to Pharmacy Final Diagnosis POD 2 PLTCS Problems Reviewed?: Yes Consults/Follow Up Additional Follow Up: Yes Orders/Referrals Dr. Cueto in 7-10 days and in 6 weeks Activity Activity: Activity as Tolerated Driving Instructions: No Driving for 1 Week NO SMOKING: NO SMOKING Nothing Inside Vagina: No Douching, No [place], No Tampons Diet Discharge Diet: No Restrictions Symptoms to Report to : Bleeding Excessive, Pain Increased, Fever Over 101 Degrees F, Vaginal Bleeding Increase, Questions/Concerns For Any Problems or Questions: Contact Your Physician Skin/Wound Care Infection Signs and Symptoms: Increased Redness, Foul Odor of Wound, Increased Drainage, Skin Itchy or Has a Rash, Increased Swelling, Temperature Above 101 F Operative Area Clean and Dry: Keep Incision Clean/Dry Stitches/[place]/Dermabond: Dermabond, Care of Stitches Bathing Instructions: CINTIA Robledo DO Aug 29, 2022 07:26
[2022-08-29] MEDS ORDERED: IBUP-844 PO (07:27)
[2022-08-29] MEDS ORDERED: DOCU100C37 PO (07:27)
[2022-08-29] MEDS ORDERED: ACHD5005 PO (07:27)
[2022-08-29] MEDS ORDERED: ONDANSETRON 4 MG/2 ML (SDV) Z0FRAN IVP PRN ×2 (07:30→08:45)
[2022-08-29] MEDS ORDERED: NALOXONE 0.4 MG/ML 1 ML (NARCAN) VIAL IV PRN (07:30)
[2022-08-29] MEDS ORDERED: TETANUS,DIPTH,PERTUSS P/F (BOOSTRIX) 0.5 ML VIAL IM SCH (07:30)
[2022-08-29] MEDS ORDERED: MEASLES,MUMPS,RUBELLA 1 EA INJ SC SCH (07:30)
[2022-08-29] MEDS ORDERED: KETOROLAC 30 MG/ML VIAL ONE (07:49)
[2022-08-29] MEDS: KETOROLAC 30 MG/ML VIAL IV SCH ×3 (08:00→19:41)
[2022-08-29] MEDS ORDERED: HYDROmorphone 2 MG/ML VIAL (DILAUDID) IV ONE (08:45)
[2022-08-29] MEDS: OXYTOCIN PRE-MIX DRIP 500 ML IV SCH ×2 (08:49→12:43)
--- NOTE | 2022-08-29 09:36 | OPERATIVE REPORT ---
PREOPERATIVE DIAGNOSES: 1. A 27-year-old G2, P1 at 37 weeks' gestation. 2. Malpresentation of diamniotic dichorionic twin . 3. GBS negative. POSTOPERATIVE DIAGNOSES: 1. A 27-year-old G2, P1 at 37 weeks' gestation. 2. Malpresentation of diamniotic dichorionic twin . 3. GBS negative, 68. PROCEDURE: Primary low transverse section. SURGEON: Pedro Luis Bishop DO. ANIMAL ANATOMIST: Dr. Claire Veronica who was necessary for manipulation and retraction throughout the procedure. ANESTHESIA: Spinal. ESTIMATED BLOOD LOSS: 1200 mL FLUIDS: 1700 mL lactated Ringer's solution. URINE OUTPUT: 200 mL clear at end of the procedure. FINDINGS: A Live female infant, weighing 6 pounds 10 ounces, Apgars of 8 and 9 and a live male weighing 7 pounds 8 ounces, Apgars of 8 and 9. Grossly normal appearing uterus, bilateral fallopian tubes and ovaries. SPECIMEN SENT: Placenta. INDICATIONS FOR PROCEDURE: This 27-year-old female patient had sought care in my office was uncomplicated with the exception of twin that was found to be diamniotic dichorionic in first trimester as well as mild presentation of the twins with the leading twin being persistent breech and the second twin had an unstable lie and we had switched from transverse to breech throughout the spinal weeks. Due to her term status, we discussed delivery at 37 weeks of the unstable lie. Risks of procedure discussed with the patient in detail including risk of bleeding, damage to surrounding structures including but not limited to bowel, bladder, ureter, kidneys, possible need for reoperation, risk and inspection, Postoperative complications that may occur, recovery timeframe, hospital stay, possible need for blood transfusion, even . Everything was discussed with the patient in detail. She was agreeable to proceed. Consent was obtained in the preoperative area. The patient was taken to the operating room. OPERATIVE REPORT IN DETAIL Once in the operating room, spinal anesthesia was administered and found to be adequate, was placed in supine position with leftward tilt, prepped and draped in normal sterile fashion. A timeout was performed. Anesthesia was tested. I then made a Pfannenstiel skin incision with a knife and carried to underlying fascia using Bovie cautery. The fascial incision extended laterally using Bovie cautery. The superior aspect of fascial incision was then grasped with Erlin clamps, tented up and dissected off the underlying rectus muscles. The inferior aspect of the fascial incision was then grasped with Erlin clamps, tented up and dissected off the underlying rectus muscles. The rectus muscles were then dissected bluntly down the midline, which exposed the peritoneum, which I entered bluntly, extended using blunt traction. An Amos ring retractor was placed in the peritoneal incision, which offers excellent lateral sidewall retraction. I identified the lower uterine segment was found to be thinned out and make a low transverse incision to the vesicouterine peritoneum and bluntly dissected off the lower uterine segment, creating a bladder flap. I then proceeded with my myotomy until membranes were visualized, at which point I extended the uterine incision laterally and superiorly using bandage scissors. Amniotomy was then performed using an Allis clamp. Clear fluid was noted. The infant A was found in the complete breech presentation. The buttocks were elevated up to the incision where was delivered through the incision. The was facing downward. The arms were delivered by sweeping them across the chest and then with gentle elevation of the body and flexion of the head. The was delivered through the incision where the nares and oropharynx were bulb suctioned. Infant was brought to the operative field where the cord was doubly clamped and cut and infant was handed off to the waiting nurses in attendance. The cord on A was marked with 1 cord clamp. I then performed a second amniotomy of the second sac. Clear fluid was noted. The is found in the transverse presentation as right transverse. The buttocks were brought down to the incision where they are delivered through the incision up to the upper torso where the was rotated to be facing downward. The arms were delivered by sweeping them across the chest and elevating the infant's body. We were able to deliver the head by a gentle flexion through the incision where the nares and oropharynx were bulb suctioned. The cord was doubly clamped and cut and infant was handed off to waiting nurses in attendance. The cord on B is marked with 2 cord clamps. Cord blood was drawn from each cord and marked separately. The placenta was then delivered intact. The uterus was exteriorized and cleared of all endometrial clots and debris. I then proceeded with closing the uterine incision using 0 Vicryl suture in a running locked fashion. Second layer of imbricating 0 Monocryl was placed. Excellent hemostasis was noted after doing this, I then placed the uterus back in the pelvis and copiously irrigated the pelvis using normal saline once again and found to be normal female dissection planes, I reapproximated the peritoneum over the top of the incision and then placed Interceed over the top of the reapproximation. I then removed the Amos ring retractor and proceeded with closing the peritoneum using 3-0 Vicryl suture in a running fashion. The rectus muscles were reapproximated using 3-0 Vicryl suture in interrupted fashion. The fascia was reapproximated using 0 Vicryl suture in a running fashion. The skin was reapproximated using 4-0 Monocryl in a running subcuticular stitch. Dermabond was applied to incision, sterile dressing with adhesive white tape. 0.2 mg of Methergine were given IM during the procedure due to slight bit of uterine atony with good response. IV Pitocin was initiated at the delivery of the placenta to facilitate uterine contraction. Uterine fundus did become firm with bimanual massage. There was a delayed response. Lap and sponge counts were correct at the end of the procedure. Instrument counts correct as well. The sterile dressing was adhesed with white tape. Two grams of Ancef were given preoperatively for infection prophylaxis. Job ID: [id number] DocumentID: [id number] Dictated Date: 08/29/2022 08:19:40 Supervisor [employer] Date: 08/29/2022 09:34:00 Dictated By: PEDRO LUIS BISHOP DO
[2022-08-29] MEDS: DOCUSATE SODIUM 100 MG (COLACE) CAP PO SCH ×2 (10:03→21:03)
[2022-08-29] MEDS: HYDROcodone/APAP 5 MG/325 MG (LORTAB) TAB PO PRN ×2 (12:42→19:40)
[2022-08-29] MEDS ORDERED: CATHETER FLUSH 10 ML SYR IV SCH (14:00)
[2022-08-30 02:10] VITALS: BP 118/54
[2022-08-30] MEDS: KETOROLAC 30 MG/ML VIAL IV SCH (02:33)
[2022-08-30] MEDS: HYDROcodone/APAP 5 MG/325 MG (LORTAB) TAB PO PRN ×4 (02:33→20:44)
[2022-08-30 06:27] LABS: MEAN CORPUSCULAR VOLUME 100 fL (80-99); MEAN PLATELET VOLUME 10.9 fL (9.0-12.2); MONOCYTES # (AUTO) 1.2 10^3/uL (0.0-1.0); MONOCYTES % (AUTO) 9 % (0-12)
[2022-08-30 06:29] LABS: BASOPHILS # (AUTO) 0.1 10^3/uL (0.0-0.1); BASOPHILS % (AUTO) 0 % (0-10); EOSINOPHILS # (AUTO) 0.1 10^3/uL (0.0-0.3); EOSINOPHILS % (AUTO) 1 % (0-10); HEMATOCRIT 32 % (35-52); LYMPHOCYTES # (AUTO) 2.8 10^3/uL (1.0-4.0); LYMPHOCYTES % (AUTO) 21 % (12-44); MEAN CORPUSCULAR HGB CONC 35 g/dL (32-36); NEUTROPHILS # (AUTO) 9.1 10^3/uL (1.8-7.8); NEUTROPHILS % (AUTO) 69 % (42-75); PLATELET COUNT 150 10^3/uL (130-400); WHITE BLOOD COUNT 13.3 10^3/uL (4.3-11.0)
[2022-08-30 06:30] LABS: MEAN CORPUSCULAR HEMOGLOBIN 34 pg (25-34)
--- NOTE | 2022-08-30 07:39 | Anesthesia-Regional Post-Op ---
Regional Patient Condition Mental Status: Alert, Oriented x3 Circulation: Same as Pre-Op Headache: Absent Sensation: Full Recovery Motor Block: Absent Post Op Complications Complications None Follow Up Care/Instructions Patient Instructions None needed. Anesthesia/Patient Condition Patient is doing well, no complaints, stable vital signs, no apparent adverse anesthesia problems. No complications reported per nursing. NAEL HIRSCH CRNA Aug 30, 2022 07:39
--- NOTE | 2022-08-30 07:43 | Postpartum Progress Note ---
Note Note Day #1 Subjective: Patient is without complaints. Ambulating, voiding. Tolerating a regular diet without nausea or vomiting. Normal lochia. Pain is well controlled with oral pain medications. . [] Objective: [] Physical Exam: General - Alert and oriented, no apparent distress Breast symmetrical no erythema, edema or engorgement Abdomen - Soft, appropriately tender to palpation, non-distended, fundus firm at umbilicus Incision site clean dry intact no signs or symptoms of infection Lochia minimal Extremities - no edema, negative Lisbet's bilaterally Assessment: [] post- day #1 status post Low transverse section Recovering well, hemodynamically stable Plan: Routine care. Encourage breast feeding. Encourage ambulation. Ferrous sulfate supplementation. Plan for discharge [] Vitals - Labs Vital Signs - I&O Vital Signs Date Time Temp Pulse Resp B/P (MAP) Pulse Ox O2 Delivery O2 Flow Rate FiO2 08/30/22 02:10 36.4 68 20 118/54 (75) 98 Room Air 08/29/22 19:42 37.0 68 20 110/61 (77) 97 Room Air 08/29/22 15:30 36.5 65 20 109/58 (75) 98 Room Air 08/29/22 09:45 35.7 59 16 123/68 (86) 98 Room Air 08/29/22 09:12 Room Air 08/29/22 09:12 35.5 16 114/60 (78) 99 Room Air 08/29/22 09:00 Room Air 08/29/22 09:00 35.5 16 129/72 (91) 97 Room Air 08/29/22 08:45 Room Air 08/29/22 08:45 35.6 16 115/59 (77) 98 Room Air 08/29/22 08:30 35.6 16 108/59 (75) 98 Room Air 08/29/22 08:30 Room Air 08/29/22 08:15 Room Air 08/29/22 08:15 36.1 16 111/53 (72) 98 Room Air 08/29/22 08:12 Room Air 08/29/22 08:12 Room Air I & O 08/30/22 07:00 Intake Total 550 ml Output Total 1045 ml Balance -495 ml Labs Laboratory Tests 08/30/22 06:20: White Blood Count 13.3H, Red Blood Count 3.19L, Hemoglobin 11.0#L, Hematocrit 32L, Mean Corpuscular Volume 100H, Mean Corpuscular Hemoglobin 34, Mean Corpuscular Hemoglobin Concent 35, Red Cell Distribution Width 14.0, Platelet Count 150, Mean Platelet Volume 10.9, Immature Granulocyte % (Auto) 1, Neutrophils (%) (Auto) 69, Lymphocytes (%) (Auto) 21, Monocytes (%) (Auto) 9, Eosinophils (%) (Auto) 1, Basophils (%) (Auto) 0, Neutrophils # (Auto) 9.1H, Lymphocytes # (Auto) 2.8, Monocytes # (Auto) 1.2H, Eosinophils # (Auto) 0.1, Basophils # (Auto) 0.1, Immature Granulocyte # (Auto) 0.1, Percent Immature Platelet Fraction 6.8 Microbiology 08/29/22 MRSA Screen - Final, Complete MRSA not isolated GISELLE MUJICA 16, 2023 07:43
[2022-08-30] MEDS: DOCUSATE SODIUM 100 MG (COLACE) CAP PO SCH ×2 (08:41→20:43)
[2022-08-30] MEDS: IBUPROFEN 600 MG (MOTRIN) TAB PO SCH ×3 (08:42→20:43)
[2022-08-30 08:44] VITALS: BP 118/73
[2022-08-30 14:50] VITALS: BP 124/63
[2022-08-30 20:42] VITALS: BP 112/54
[2022-08-31 02:42] VITALS: BP 111/52
[2022-08-31] MEDS: IBUPROFEN 600 MG (MOTRIN) TAB PO SCH ×2 (02:43→11:34)
[2022-08-31] MEDS: HYDROcodone/APAP 5 MG/325 MG (LORTAB) TAB PO PRN (02:43)
[2022-08-31 08:05] VITALS: BP 132/71
--- NOTE | 2022-08-31 08:37 | Short Stay Summary ---
Discharge Summary Hospital Course Final Diagnosis: 37 weeks, Twins, Breech Hospital Course Date of Admission: Aug 29, 2022 at 05:36 Admission Diagnosis : Family Physician/Provider: Pedro Luis Cueto DO Date of Discharge: 08/31/22 Discharge Diagnosis: 37 weeks, Twins, Breech Hospital Course: NAME: ESTHER DAVID [facility] REC#: [id number] : 1995 LOCATION: ADMIT DATE: 08/29/22 PHYSICIAN: PEDRO LUIS CUETO DO PREOPERATIVE DIAGNOSES: 1. A 27-year-old G2, P1 at 37 weeks' gestation. 2. Malpresentation of diamniotic dichorionic twin . 3. GBS negative. POSTOPERATIVE DIAGNOSES: 1. A 27-year-old G2, P1 at 37 weeks' gestation. 2. Malpresentation of diamniotic dichorionic twin . 3. GBS negative, 68. PROCEDURE: Primary low transverse section. SURGEON: Pedro Luis Cueto DO. APPRAISER LAND: Dr. Claire Veronica who was necessary for manipulation and retraction throughout the procedure. ANESTHESIA: Spinal. ESTIMATED BLOOD LOSS: 1200 mL FLUIDS: 1700 mL lactated Ringer's solution. URINE OUTPUT: 200 mL clear at end of the procedure. FINDINGS: A Live female infant, weighing 6 pounds 10 ounces, Apgars of 8 and 9 and a live male infant weighing 7 pounds 8 ounces, Apgars of 8 and 9. Grossly normal appearing uterus, bilateral fallopian tubes and ovaries. SPECIMEN SENT: Placenta. INDICATIONS FOR PROCEDURE: This 27-year-old female patient had sought care in my office was uncomplicated with the exception of twin that was found to be diamniotic dichorionic in first trimester as well as mild presentation of the twins with the leading twin being persistent breech and the second twin had an unstable lie and we had switched from transverse to breech throughout the spinal weeks. Due to her term status, we discussed delivery at 37 weeks of the unstable lie. Risks of procedure discussed with the patient in detail including risk of bleeding, damage to surrounding structures including but not limited to bowel, bladder, ureter, kidneys, possible need for reoperation, risk and inspection, Postoperative complications that may occur, recovery timeframe, hospital stay, possible need for blood transfusion, even . Everything was discussed with the patient in detail. She was agreeable to proceed. Consent was obtained in the preoperative area. The patient was taken to the operating room. OPERATIVE REPORT IN DETAIL Once in the operating room, spinal anesthesia was administered and found to be adequate, was placed in supine position with leftward tilt, prepped and draped in normal sterile fashion. A timeout was performed. Anesthesia was tested. I then made a Pfannenstiel skin incision with a knife and carried to underlying fascia using Bovie cautery. The fascial incision extended laterally using Bovie cautery. The superior aspect of fascial incision was then grasped with Erlin clamps, tented up and dissected off the underlying rectus muscles. The inferior aspect of the fascial incision was then grasped with Erlin clamps, tented up and dissected off the underlying rectus muscles. The rectus muscles were then dissected bluntly down the midline, which exposed the peritoneum, which I entered bluntly, extended using blunt traction. An Amos ring retractor was placed in the peritoneal incision, which offers excellent lateral sidewall retraction. I identified the lower uterine segment was found to be thinned out and make a low transverse incision to the vesicouterine peritoneum and bluntly dissected off the lower uterine segment, creating a bladder flap. I then proceeded with my myotomy until membranes were visualized, at which point I extended the uterine incision laterally and superiorly using bandage scissors. Amniotomy was then performed using an Allis clamp. Clear fluid was noted. The infant A was found in the complete breech presentation. The buttocks were elevated up to the incision where was delivered through the incision. The was facing downward. The arms were delivered by sweeping them across the chest and then with gentle elevation of the body and flexion of the head. The infant was delivered through the incision where the nares and oropharynx were bulb suctioned. was brought to the operative field where the cord was doubly clamped and cut and was handed off to the waiting nurses in attendance. The cord on A was marked with 1 cord clamp. I then performed a second amniotomy of the second sac. Clear fluid was noted. The is found in the transverse presentation as right transverse. The buttocks were brought down to the incision where they are delivered through the incision up to the upper torso where the infant was rotated to be facing downward. The arms were delivered by sweeping them across the chest and elevating the infant's body. We were able to deliver the head by a gentle flexion through the incision where the nares and oropharynx were bulb suctioned. The cord was doubly clamped and cut and infant was handed off to waiting nurses in attendance. The cord on B is marked with 2 cord clamps. Cord blood was drawn from each cord and marked separately. The placenta was then delivered intact. The uterus was exteriorized and cleared of all endometrial clots and debris. I then proceeded with closing the uterine incision using 0 Vicryl suture in a running locked fashion. Second layer of imbricating 0 Monocryl was placed. Excellent hemostasis was noted after doing this, I then placed the uterus back in the pelvis and copiously irrigated the pelvis using normal saline once again and found to be normal female dissection planes, I reapproximated the peritoneum over the top of the incision and then placed Interceed over the top of the reapproximation. I then removed the Amos ring retractor and proceeded with closing the peritoneum using 3-0 Vicryl suture in a running fashion. The rectus muscles were reapproximated using 3-0 Vicryl suture in interrupted fashion. The fascia was reapproximated using 0 Vicryl suture in a running fashion. The skin was reapproximated using 4-0 Monocryl in a running subcuticular stitch. Dermabond was applied to incision, sterile dressing with adhesive white tape. 0.2 mg of Methergine were given IM during the procedure due to slight bit of uterine atony with good response. IV Pitocin was initiated at the delivery of the placenta to facilitate uterine contraction. Uterine fundus did become firm with bimanual massage. There was a delayed response. Lap and sponge counts were correct at the end of the procedure. Instrument counts correct as well. The sterile dressing was adhesed with white tape. Two grams of Ancef were given preoperatively for infection prophylaxis. Job ID: [id number] DocumentID: [id number] Dictated Date: 08/29/2022 08:19:40 Client Finance Analyst Date: 08/29/2022 09:34:00 Dictated By: PEDRO LUIS CUETO DO [id number] <Dictated by PEDRO LUIS CUETO DO> <Electronically signed by PEDRO LUIS CUETO DO> 08/30/22 0849 Uncomplicated post-op course. Discharged home in good condition on post-op day #2. Labs and Pending Lab Test: Microbiology 08/29/22 MRSA Screen - Final, Complete MRSA not isolated Home Meds Active Docusate Sodium 100 Mg Capsule 100 Mg PO BID PRN Hydrocodone-Acetamin 5-325 mg (Hydrocodone/Acetaminophen) 5 Mg-325 Mg Tablet 1-2 Ea PO Q6HR PRN Ibu (Ibuprofen) 600 Mg Tablet 600 Mg PO Q6H Reported Tums (Calcium Carbonate) Unknown Strength Tab.chew Unknown Dose PO [Folic ] 88 Mcg PO DAILY Prenata Chewable Tablet ( Vit37/Iron/Folic Acid) 29 Mg Iron-1 Mg Tab.chew 1 Each PO DAILY Ferosul (Ferrous Sulfate) 325 Mg (65 Mg Iron) Tablet 325 Mg PO DAILY Assessment/Pt Instructions Routine post-op instructions. Verbal instructions also given for no lifting over 15 lbs x 6 weeks, return for incisional redness, tenderness, foul drainage. Discharge Instructions Discharge Diet: No Restrictions Activity as Tolerated: Yes Discharge Physical Examination General Appearance: Alert, Oriented X3 Abdominal: Soft, No Tenderness, Other (Uterus 6 cm below umbilicus and non- tender, incision intact without erythema or drainage.) Extremities: No Clubbing, No Edema, No Tenderness/Swelling Skin: No Rashes, No Significant Lesion Neuro: Normal Gait, Normal Speech, Normal Tone, Sensation Intact Psych/Mental Status: Mental Status NL Allergies: Coded Allergies: No Known Drug Allergies (Unverified , 06/14/20) Discharge Summary Date of Admission Aug 29, 2022 at 05:36 Date of Discharge 08/31/22 Discharge Date: Aug 31, 2022 Discharge Time: 08:40 Admission Diagnosis 37 weeks Twins Breech Consults/Procedures Procedures Discharge Diagnosis 37 weeks Twins Breech OSMAN SCHMIDT DO Aug 31, 2022 08:36
[2022-08-31] MEDS: DOCUSATE SODIUM 100 MG (COLACE) CAP PO SCH (11:34)
== END 2022-08-31 13:00 | disposition home or self-care (01) | DRG 788 ==
LOC: LDRP 05:36 → WS 09:37
PROVIDERS: ADMIT Obstetrics & Gynecology; ATTEND Obstetrics & Gynecology
PROC: 10D00Z1 Extraction of Products of Conception, Low, Open Approach (ICD-10-PCS; principal; 2022-08-29 07:17)
DX: O30.043 Twin pregnancy, dichorionic/diamniotic, third trimester (principal); Z3A.37 37 weeks gestation of pregnancy; Z37.2 Twins, both liveborn; O32.1XX1 Maternal care for breech presentation, fetus 1; O32.1XX2 Maternal care for breech presentation, fetus 2
CPT/HCPCS: 36415; 85025; 86850; 86900; 86901; 87081; 94664